=== PATIENT | male | born 1935 | race African-American/Black ===

== ENCOUNTER 2018-07-09 13:27 | Emergency (ER) | payer BC, OTHER ==
[~2018-07-09] VITALS: Ht 170.2 cm; Wt 75.0 kg
[2018-07-09 13:45] VITALS: BP 146/80
== END 2018-07-09 17:01 | disposition left against medical advice (07) ==
LOC: ER 14:25
DX: M79.642 Pain in left hand (principal); I11.9 Hypertensive heart disease without heart failure; Z95.0 Presence of cardiac pacemaker; Z53.29 Procedure and treatment not carried out because of patient's decision for other reasons
CPT/HCPCS: 99281

== ENCOUNTER 2019-02-15 15:20 | Emergency (ER) | payer BC, OTHER ==
[~2019-02-15] VITALS: Ht 170.2 cm; Wt 69.0 kg
[2019-02-15] MEDS ORDERED: AMOXICILLIN/POTASSIUM CLAVULANATE 875/125MG TAB PO ONE (16:00)
[2019-02-15] MEDS ORDERED: TETANUS, DIPHTHERIA, PERTUSSIS VAC/PF 0.5ML (>7YR OLD) IM ONE (16:00)
[2019-02-15] MEDS ORDERED: BACITRACIN ZINC OINT UDPKT TOP ONE (16:00)
[2019-02-15 16:15] VITALS: BP 162/86
[2019-02-15] MEDS: BACITRACIN 15GM TUBE TOP SCH ×2 (16:28→16:41)
== END 2019-02-15 17:55 | disposition home or self-care (01) ==
LOC: ER 15:20
DX: S61.412A Laceration without foreign body of left hand, initial encounter (principal); W18.39XA Other fall on same level, initial encounter; Y93.89 Activity, other specified; Y92.89 Other specified places as the place of occurrence of the external cause; Y99.8 Other external cause status; I10 Essential (primary) hypertension; Z95.0 Presence of cardiac pacemaker
CPT/HCPCS: 12002; 90471; 90715; 99283